=== PATIENT | male | born 1975 | race Caucasian/White ===

== ENCOUNTER 2017-04-21 11:22 | Emergency (ER) | payer MEDICAID ==
[2017-04-21 11:30] VITALS: RESP 16; O2SAT 94
--- NOTE | 2017-04-21 11:54 | EDPHY ---
H & P Stated Complaint: left lower rib pain, low back pain, knee vs rib Time Seen by Provider: 04/21/17 11:35 HPI/ROS: Chief Complaint: back and rib pain HPI: 41-year-old male was wrestling with his son 4 days ago when he fell off the bed and his 10-year-old jumped and landed on his back. Patient states he felt a pop in his left lateral ribs. Since that time he has been having persistent pain and unable to find a position of comfort. He is also states that he is having worsening back pain as well. He has been taking Advil with minimal relief. She is having a hard time sleeping. Does not hurt to take a deep breath. Bumps while driving on the road are painful. No nausea or vomiting. No blood in his urine or dark urine. Does have a history of a prior spleen injury in the past. No nausea or vomiting. No chest pain or shortness of breath. ROS: 10 point Review of Systems is negative except as noted in the HPI. PMH: Prior spleen injury snowboarding Social History: No smoking Family History: non-contributory Physical Exam: Gen: Awake, Alert, Airway Intact HEENT: Head: Atraumatic Eyes: PERRLA, EOMI Nose: No epistaxis Mouth: Normal dentition, Airway patent Face: No deformity Neck: non-tender, no stepoff, Full ROM without pain Chest: He has tenderness over the lateral left lower ribs, lungs CTA Heart: normal heart tones Abd: soft, he has left lower and left upper quadrant tenderness with guarding, no contusions Pelvis: non-tender, stable to AP and Lateral compression Back: atraumatic, no midline tenderness Ext: atramatic, full ROM Skin: no rash Neuro: CN II-XII intact, Strength 5/5 in all extremities, sensation intact in all extremities - Personal History Current Tetanus Diphtheria and Acellular Pertussis (TDAP): Unsure - Medical/Surgical History Hx Asthma: No Hx Chronic Respiratory Disease: No Hx Diabetes: No Hx Cardiac Disease: No Hx Renal Disease: No Hx Cirrhosis: No Hx Alcoholism: No Hx HIV/AIDS: No Hx Splenectomy or Spleen Trauma: No Other PMH: orthopedic surgeries - Social History Smoking Status: Never smoked Constitutional: Initial Vital Signs Heart Rate 65 04/21/17 11:26 Respiratory Rate 16 04/21/17 11:26 Blood Pressure 148/86 H 04/21/17 11:26 O2 Sat (%) 94 04/21/17 11:26 O2 Delivery Mode Room Air Allergies/Adverse Reactions: No Known Allergies Allergy (Verified 04/21/17 11:31) Home Medications: Medication Instructions Recorded Hydrocodone/Acetaminophen 1 - 2 each PO Q4-6PRN PRN #10 04/21/17 [Hydrocodon-Acetaminophen 5-325] tablet Medical Decision Making - Diagnostics Imaging: 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 He has had persistent left lateral rib pain in the [place] has rib tenderness. What is concerning is he also has abdominal tenderness on exam. I cannot differentiate between chest wall and D per peritoneal signs. Is concerning for the possibility of a splenic injury. Will obtain a CT scan to rule out acute traumatic injury. CT scan unremarkable for acute intra-abdominal ordered injury. Results have been discussed with the patient. Symptoms consistent with rib contusion. He is completely neurologically intact. Will discharge with oral analgesia and follow up with primary care physician. - Data Points Laboratory Results: Laboratory Results 04/21/17 12:01 04/21/17 12:01 04/21/17 04/21/17 12:01 12:01 WBC 8.48 10^3/uL 10^3/uL (3.80-9.50) RBC 5.58 10^6/uL 10^6/uL (4.40-6.38) Hgb 16.1 g/dL g/dL (13.7-17.5) Hct 47.1 % % (40.0-51.0) MCV 84.4 fL fL (81.5-99.8) MCH 28.9 pg pg (27.9-34.1) MCHC 34.2 g/dL g/dL (32.4-36.7) RDW 12.2 % % (11.5-15.2) Plt Count 356 10^3/uL 10^3/uL (150-400) MPV 9.3 fL fL (8.7-11.7) Neut % (Auto) 65.9 % % (39.3-74.2) Lymph % (Auto) 25.2 % % (15.0-45.0) Hunt % (Auto) 7.8 % % (4.5-13.0) Eos % (Auto) 0.8 % % (0.6-7.6) Baso % (Auto) 0.2 % L % (0.3-1.7) Nucleat RBC Rel Count 0.0 % % (0.0-0.2) Absolute Neuts (auto) 5.58 10^3/uL 10^3/uL (1.70-6.50) Absolute Lymphs (auto) 2.14 10^3/uL 10^3/uL (1.00-3.00) Absolute Monos (auto) 0.66 10^3/uL 10^3/uL (0.30-0.80) Absolute Eos (auto) 0.07 10^3/uL 10^3/uL (0.03-0.40) Absolute Basos (auto) 0.02 10^3/uL 10^3/uL (0.02-0.10) Absolute Nucleated RBC 0.00 10^3/uL 10^3/uL (0-0.01) Immature Gran % 0.1 % % (0.0-1.1) Immature Gran # 0.01 10^3/uL 10^3/uL (0.00-0.10) Sodium 140 mEq/L mEq/L (134-144) Potassium 4.7 mEq/L mEq/L (3.5-5.2) Chloride 99 mEq/L mEq/L (97-110) Carbon Dioxide 24 mEq/l mEq/l (22-31) Anion Gap 17 mEq/L H mEq/L (8-16) BUN 18 mg/dL mg/dL (7-23) Creatinine 0.8 mg/dL mg/dL (0.7-1.3) Estimated GFR > 60 Glucose 88 mg/dL mg/dL (70-100) Calcium 10.2 mg/dL mg/dL (8.5-10.4) Departure - Departure Disposition: Home, Routine, Self-Care Clinical Impression: Rib pain Condition: Good Instructions: Rib Contusion (ED) Additional Instructions: Continue taking ibuprofen 600 mg 3 times a day. You may take hydrocodone with acetaminophen at bedtime carried Follow up with your primary care physician in 3-4 days for further evaluation. Return to the emergency department for increasing pain, fevers, chills, shortness of breath, worsening abdominal pain, or any other concerns. Referrals: hSayne Alaniz MD [[facility] Primary Care Provider] - As per Instructions Prescriptions: Hydrocodone/Acetaminophen [Hydrocodon-Acetaminophen 5-325] 1 - 2 each PO Q4- 6PRN PRN #10 tablet PRN Reason: Pain, Severe
[2017-04-21 12:07] LABS: PLATELET COUNT 356 10^3/uL (150-400)
[2017-04-21] MEDS ORDERED: IOPAMIDOL (ISOVUE-300) 100 ML BTL ONE (12:32)
[2017-04-21 13:29] VITALS: BP 138/81; PULSE 73; TEMP 98.2
== END 2017-04-21 13:29 | disposition home or self-care (01) ==
LOC: CED 11:22
DX: S29.9XXA Unspecified injury of thorax, initial encounter (principal); X58.XXXA Exposure to other specified factors, initial encounter
CPT/HCPCS: 74177-PO; 80048-PO; 85025-PO; Q9967